=== PATIENT | male | born 2000 | race Caucasian/White ===

== ENCOUNTER 2019-01-25 16:20 | Emergency (ER) | payer OTHER ==
[~2019-01-25] VITALS: Ht 165.1 cm; Wt 63.6 kg
[2019-01-25] MEDS ORDERED: QUET100T PO (16:32)
[2019-01-25] MEDS ORDERED: SODIUM CHLORIDE 0.9% 1,000 ML IV ONE (18:00)
[2019-01-25 18:18] LABS: BASOPHILS % (AUTO) 0.3 % (0.0-2.0); EOSINOPHILS % (AUTO) 0.7 % (1.0-6.0); HEMATOCRIT 41.7 % (41-53); LYMPHOCYTES # (AUTO) 1.7 K/uL (1.0-4.8); LYMPHOCYTES % (AUTO) 19.9 % (22.0-44.0); MEAN CORPUSCULAR HEMOGLOBIN 27.5 pg (26.0-34.0); MEAN CORPUSCULAR HGB CONC 33.5 G/dL (31.0-37.0); MEAN CORPUSCULAR VOLUME 82 fL (80-100); MONOCYTES # (AUTO) 0.5 K/uL (0.1-1.0); MONOCYTES % (AUTO) 5.9 % (2.0-9.0); NEUTROPHILS # (AUTO) 6.2 K/uL (1.8-7.7); NEUTROPHILS % (AUTO) 73.2 % (40.0-70.0); PLATELET COUNT (AUTO) 253 K/uL (150-450); RED BLOOD CELL COUNT(AUTO) 5.09 MIL/uL (4.50-5.90); RED CELL DISTRIBUTION WIDTH 13.9 % (11.5-14.5)
[2019-01-25 18:33] LABS: ANION GAP 5 mmol/L (8-16); CALCIUM, TOTAL 9.2 mg/dL (8.8-10.5); CARBON DIOXIDE 30 mmol/L (22-29); CHLORIDE 101 mmol/L (98-107); CREATININE 1.09 mg/dL (0.60-1.30); GLOMERULAR FILTR. RATE CALC > 60 mL/min (>60); GLUCOSE,RANDOM 90 mg/dL (70-110); POTASSIUM 4.3 mmol/L (3.5-5.1); SODIUM SERUM 136 mmol/L (136-145); UREA NITROGEN, BLOOD 22 mg/dL (7-18)
[2019-01-25 18:38] LABS: ALANINE AMINOTRANSFERASE 17 U/L (12-78); ALBUMIN 3.6 g/dL (3.4-5.0); ALKALINE PHOSPHATASE 83 U/L (46-116); ASPARTATE AMINOTRANSFERASE 13 U/L (15-37); BILIRUBIN,TOTAL 0.2 mg/dL (0.1-1.0); TOTAL PROTEIN, SERUM 7.4 g/dL (6.4-8.2)
[2019-01-25 20:12] LABS: AMPHET/METH SCREEN,URINE NEGATIVE (NEGATIVE); BARBITURATE SCREEN, URINE NEGATIVE (NEGATIVE); BENZODIAZEPINES SCREEN,URINE NEGATIVE (NEGATIVE); CANNABINOID SCREEN,URINE NEGATIVE (NEGATIVE); COCAINE SCREEN,URINE NEGATIVE (NEGATIVE); METHADONE SCREEN, URINE NEGATIVE (NEGATIVE); OPIATE SCREEN,URINE NEGATIVE (NEGATIVE)
[2019-01-25 20:14] LABS: PHENCYCLIDINE SCREEN,URINE NEGATIVE (NEGATIVE)
[2019-01-25 20:18] VITALS: BP 119/71
== END 2019-01-25 20:20 | disposition home or self-care (01) ==
LOC: EMS 16:20
DX: R55 Syncope and collapse (principal); R42 Dizziness and giddiness; F20.9 Schizophrenia, unspecified; Z79.899 Other long term (current) drug therapy
CPT/HCPCS: 36415; 70450; 80053; 80307; 85025; 93005; 96360; 99285; J7030

== ENCOUNTER 2020-08-30 | Emergency (ER) | payer OTHER ==
[~2020-08-30] VITALS: Ht 170.2 cm; Wt 72.7 kg
[~2020-08-30] MED LIST: QUET100T PO
[2020-08-30] MEDS ORDERED: HALO2 PO (00:29)
[2020-08-30] MEDS ORDERED: BENZ1TAB10 PO (00:29)
[2020-08-30 00:38] LABS: BASOPHILS % (AUTO) 0.2 % (0.0-2.0); EOSINOPHILS % (AUTO) 0.2 % (1.0-6.0); HEMATOCRIT 41.3 % (41-53); HEMOGLOBIN 13.5 g/dL (13.5-17.5); LYMPHOCYTES # (AUTO) 1.6 K/uL (1.0-4.8); LYMPHOCYTES % (AUTO) 13.3 % (22.0-44.0); MEAN CORPUSCULAR HEMOGLOBIN 27.5 pg (26.0-34.0); MEAN CORPUSCULAR HGB CONC 32.7 G/dL (31.0-37.0); MEAN CORPUSCULAR VOLUME 84 fL (80-100); MONOCYTES # (AUTO) 0.6 K/uL (0.1-1.0); NEUTROPHILS # (AUTO) 9.9 K/uL (1.8-7.7); NEUTROPHILS % (AUTO) 81.3 % (40.0-70.0); PLATELET COUNT (AUTO) 263 K/uL (150-450); RED BLOOD CELL COUNT(AUTO) 4.91 MIL/uL (4.50-5.90); RED CELL DISTRIBUTION WIDTH 13.4 % (11.5-14.5)
[2020-08-30 01:04] LABS: ALANINE AMINOTRANSFERASE 22 U/L (12-78); ALKALINE PHOSPHATASE 74 U/L (46-116); ANION GAP 6 mmol/L (8-16); ASPARTATE AMINOTRANSFERASE 20 U/L (15-37); BILIRUBIN,TOTAL 0.2 mg/dL (0.1-1.0); CARBON DIOXIDE 29 mmol/L (22-29); CHLORIDE 104 mmol/L (98-107); CREATININE 1.15 mg/dL (0.60-1.30); GLOMERULAR FILTR. RATE CALC > 60 mL/min (>60); GLUCOSE,RANDOM 118 mg/dL (70-110); SODIUM SERUM 139 mmol/L (136-145); TOTAL PROTEIN, SERUM 7.7 g/dL (6.4-8.2); UREA NITROGEN, BLOOD 12 mg/dL (7-18)
[2020-08-30 01:17] VITALS: BP 135/81
== END 2020-08-30 01:21 | disposition home or self-care (01) ==
LOC: EMS
DX: F20.9 Schizophrenia, unspecified (principal); Z79.899 Other long term (current) drug therapy
CPT/HCPCS: 36415; 80053; 85025; 99285; G0480

== ENCOUNTER 2022-04-04 19:46 | Inpatient (IN) | payer MEDICAID, OTHER ==
[~2022-04-04] VITALS: Ht 167.6 cm; Wt 77.1 kg
[~2022-04-04 19:46] MED LIST changes: +BENZ1TAB96 PO; +HALO2 PO; -QUET100T PO
[2022-04-04 21:10] LABS: AMPHET/METH SCREEN,URINE NEGATIVE (NEGATIVE); BARBITURATE SCREEN, URINE NEGATIVE (NEGATIVE); BENZODIAZEPINES SCREEN,URINE NEGATIVE (NEGATIVE); CANNABINOID SCREEN,URINE NEGATIVE (NEGATIVE); COCAINE SCREEN,URINE NEGATIVE (NEGATIVE); METHADONE SCREEN, URINE NEGATIVE (NEGATIVE); OPIATE SCREEN,URINE NEGATIVE (NEGATIVE); PHENCYCLIDINE SCREEN,URINE NEGATIVE (NEGATIVE)
[2022-04-04 21:21] LABS: ANION GAP 9 mmol/L (8-16); CALCIUM, TOTAL 8.5 mg/dL (8.8-10.5); CARBON DIOXIDE 27 mmol/L (22-29); CHLORIDE 104 mmol/L (98-107); CREATININE 1.12 mg/dL (0.60-1.30); GLOMERULAR FILTR. RATE CALC > 60 mL/min (>60); GLUCOSE,RANDOM 78 mg/dL (70-110); POTASSIUM 3.3 mmol/L (3.5-5.1); SODIUM SERUM 140 mmol/L (136-145); UREA NITROGEN, BLOOD 21 mg/dL (7-18)
[2022-04-04 21:27] LABS: ALANINE AMINOTRANSFERASE 32 U/L (12-78); ALBUMIN 4.2 g/dL (3.4-5.0); ALKALINE PHOSPHATASE 85 U/L (46-116); ASPARTATE AMINOTRANSFERASE 28 U/L (15-37); BILIRUBIN,TOTAL 0.2 mg/dL (0.1-1.0); TOTAL PROTEIN, SERUM 7.9 g/dL (6.4-8.2)
[2022-04-04 21:57] LABS: COVID AG,FIA SOURCE NASAL SWAB
[2022-04-04 22:00] LABS: BASOPHILS % (AUTO) 0.2 % (0.0-2.0); EOSINOPHILS % (AUTO) 0.2 % (1.0-6.0); HEMATOCRIT 40.8 % (41-53); HEMOGLOBIN 13.5 g/dL (13.5-17.5); LYMPHOCYTES # (AUTO) 1.7 K/uL (1.0-4.8); LYMPHOCYTES % (AUTO) 17.4 % (22.0-44.0); MEAN CORPUSCULAR VOLUME 85 fL (80-100); MONOCYTES # (AUTO) 0.6 K/uL (0.1-1.0); MONOCYTES % (AUTO) 6.8 % (2.0-9.0); NEUTROPHILS # (AUTO) 7.2 K/uL (1.8-7.7); NEUTROPHILS % (AUTO) 75.4 % (40.0-70.0); PLATELET COUNT (AUTO) 275 K/uL (150-450); RED BLOOD CELL COUNT(AUTO) 4.82 MIL/uL (4.50-5.90); RED CELL DISTRIBUTION WIDTH 13.7 % (11.5-14.5)
[2022-04-04] MEDS ORDERED: IBUPROFEN 600 MG TABLET PO ONE (22:00)
[2022-04-04] MEDS ORDERED: POTASSIUM CHLORIDE 20 MEQ ER TABLET PO ONE (22:00)
[2022-04-04] MEDS ORDERED: QUEtiapine FUMARATE 100 MG TABLET PO PRN (22:30)
[2022-04-04] MEDS ORDERED: ZOLPIDEM TARTRATE 10 MG TABLET PO PRN (22:30)
[2022-04-04] MEDS ORDERED: LORazepam 2 MG TABLET PO PRN (22:30)
[2022-04-04] MEDS ORDERED: ACETAMINOPHEN 500 MG TABLET PO ONE (23:15)
[2022-04-05 09:13] VITALS: BP 137/64
[2022-04-05 16:09] VITALS: BP 119/82
[2022-04-05] MEDS ORDERED: CloNIDine HCL 0.1 MG TABLET PO PRN (16:15)
[2022-04-05] MEDS ORDERED: BACITRACIN 28 GM OINTMENT TP PRN (16:15)
[2022-04-05] MEDS ORDERED: PETROLATUM,WHITE 28 GM JELLY TP PRN (16:15)
[2022-04-05] MEDS ORDERED: IBUPROFEN 600 MG TABLET PO PRN (16:15)
[2022-04-05] MEDS ORDERED: POTASSIUM CHLORIDE 20 MEQ ER TABLET PO ONE (16:15)
[2022-04-05] MEDS ORDERED: LOPERAMIDE HCL 2 MG CAPSULE PO PRN (16:15)
[2022-04-05] MEDS ORDERED: BENZOCAINE/MENTHOL LOZENGE PO PRN (16:15)
[2022-04-05] MEDS ORDERED: OMEPRAZOLE 20 MG CAPSULE PO PRN (16:15)
[2022-04-05] MEDS ORDERED: MAG HYDROX/AL HYDROX/SIMETH ES 30 ML SUSPENSION UDCUP PO PRN (16:15)
[2022-04-05] MEDS ORDERED: ONDANSETRON HCL 4 MG TABLET PO PRN (16:15)
[2022-04-05] MEDS ORDERED: ALBUTEROL SULFATE HFA 90 MCG/PUFF 8 GM INHALER IH PRN (16:15)
[2022-04-05] MEDS ORDERED: MAGNESIUM HYDROXIDE SUSPENSION 30 ML UDCUP PO PRN (16:15)
[2022-04-05] MEDS ORDERED: ACETAMINOPHEN 325 MG TABLET PO PRN (16:15)
[2022-04-05] MEDS ORDERED: DOCUSATE SODIUM 100 MG CAPSULE PO PRN (16:15)
[2022-04-06 08:23] VITALS: BP 118/67
[2022-04-06 14:26] LABS: ANION GAP 4 mmol/L (8-16); CALCIUM, TOTAL 9.5 mg/dL (8.8-10.5); CARBON DIOXIDE 29 mmol/L (22-29); CHLORIDE 103 mmol/L (98-107); CREATININE 1.18 mg/dL (0.60-1.30); GLOMERULAR FILTR. RATE CALC > 60 mL/min (>60); GLUCOSE,RANDOM 98 mg/dL (70-110); POTASSIUM 4.1 mmol/L (3.5-5.1); SODIUM SERUM 136 mmol/L (136-145); UREA NITROGEN, BLOOD 12 mg/dL (7-18)
[2022-04-06 14:33] LABS: CHOL/HDL RATIO 4.4 (4.2-7.3)
[2022-04-06 16:29] VITALS: BP 130/70
[2022-04-07 08:14] VITALS: BP 117/61
[2022-04-07 16:22] VITALS: BP 116/76
[2022-04-07] MEDS: DIVALPROEX SODIUM 500 MG DR TABLET PO SCH (16:30)
[2022-04-07] MEDS: LITHIUM CARBONATE 300 MG CAPSULE PO SCH (16:30)
[2022-04-07] MEDS ORDERED: HALOPERIDOL LACTATE 5 MG/ML VIAL ONE (19:58)
[2022-04-07] MEDS ORDERED: LORazepam 2 MG/ML VIAL ONE (19:58)
[2022-04-07] MEDS ORDERED: DiphenhydrAMINE HCL 50 MG/ML VIAL ONE (19:59)
[2022-04-07] MEDS: QUEtiapine FUMARATE 300 MG TABLET PO SCH (20:27)
[2022-04-08 08:19] VITALS: BP 137/78
[2022-04-08] MEDS: DIVALPROEX SODIUM 500 MG DR TABLET PO SCH ×2 (09:00→16:32)
[2022-04-08] MEDS: LITHIUM CARBONATE 300 MG CAPSULE PO SCH ×2 (09:00→16:33)
[2022-04-08 16:21] VITALS: BP 131/81
[2022-04-08] MEDS: QUEtiapine FUMARATE 300 MG TABLET PO SCH (20:32)
[2022-04-09 08:26] VITALS: BP 120/66
[2022-04-09] MEDS: DIVALPROEX SODIUM 500 MG DR TABLET PO SCH ×3 (09:00→18:00)
[2022-04-09] MEDS: LITHIUM CARBONATE 300 MG CAPSULE PO SCH ×3 (09:00→18:00)
[2022-04-09 16:20] VITALS: BP 147/80
[2022-04-09] MEDS: QUEtiapine FUMARATE 300 MG TABLET PO SCH (20:12)
[2022-04-10] MEDS: DIVALPROEX SODIUM 500 MG DR TABLET PO SCH ×4 (08:37→16:33)
[2022-04-10] MEDS: LITHIUM CARBONATE 300 MG CAPSULE PO SCH ×4 (08:38→16:45)
[2022-04-10 12:03] VITALS: BP 121/82
[2022-04-10 16:24] VITALS: BP 159/92
[2022-04-10] MEDS: QUEtiapine FUMARATE 300 MG TABLET PO SCH ×2 (20:26→21:17)
[2022-04-11 08:23] VITALS: BP 140/82
[2022-04-11] MEDS: DIVALPROEX SODIUM 500 MG DR TABLET PO SCH ×3 (09:00→12:04)
[2022-04-11] MEDS: LITHIUM CARBONATE 300 MG CAPSULE PO SCH ×3 (09:00→12:04)
[2022-04-11] MEDS: QUEtiapine FUMARATE 300 MG TABLET PO SCH (16:55)
[2022-04-11 17:00] VITALS: BP 112/64
== END 2022-04-11 19:35 | disposition home or self-care (01) | DRG 750 ==
LOC: EMS 19:51 → 3EC 04-05 07:39
PROVIDERS: ADMIT Psychiatry & Neurology Psychiatry; ATTEND Psychiatry & Neurology Psychiatry
DX: F25.9 Schizoaffective disorder, unspecified (principal); Z91.14 Patient's other noncompliance with medication regimen; E87.6 Hypokalemia; S60.222A Contusion of left hand, initial encounter; F41.9 Anxiety disorder, unspecified; G47.00 Insomnia, unspecified; K59.00 Constipation, unspecified; F17.200 Nicotine dependence, unspecified, uncomplicated; F19.10 Other psychoactive substance abuse, uncomplicated; Z20.822 Contact with and (suspected) exposure to COVID-19; F12.10 Cannabis abuse, uncomplicated; X58.XXXA Exposure to other specified factors, initial encounter; Y93.89 Activity, other specified; Z71.51 Drug abuse counseling and surveillance of drug abuser; Y92.89 Other specified places as the place of occurrence of the external cause; Y99.8 Other external cause status; Z71.6 Tobacco abuse counseling
CPT/HCPCS: 80048; 80053; 80061; 85025; 99285; G0480; J1200; J1630; J2060